=== PATIENT | female | born 1990 | race Caucasian/White ===

== ENCOUNTER 2021-05-01 14:20 | Emergency (ER) | payer SELFPAY ==
[~2021-05-01] VITALS: Ht 162.6 cm; Wt 68.0 kg
[2021-05-01] MEDS ORDERED: ONDANSETRON PF 4 MG/2 ML VIAL. IVP ONE ×2 (14:30→18:45)
[2021-05-01] MEDS ORDERED: IV NORMAL SALINE 1000ML BAG 1,000 ML IV ONE (14:30)
--- NOTE | 2021-05-01 14:53 | PHYS DOC ---
Past Medical History Past Surgical History: No Surgical History (EVIE KAPADIA APRN) Smoking Status: Never Smoker Alcohol Use: None Social History Narrative: "WEED. BUT IT'S BEEN A VERY LONG TIME." (EVIE KAPADIA APRN) General Adult EDM: Chief Complaint: NAUSEA/VOMITING/DIARRHEA HPI: HPI: Patient is a 31 year old female who presents with awoke at 3:00 this morning retching. She states that she thinks is her anxiety if she just left her and is under a lot of stress. She states she has not been on any anxiety medication for 5 years. She is asking for Ativan. Patient is on her hands and knees and retching. (EVIE KAPADIA CULINARY INTERN) Review of Systems: Review of Systems: Constitutional: Denies fever or chills. [] Eyes: Denies change in visual acuity. [] HENT: Denies nasal congestion or sore throat. [] Respiratory: Denies cough or shortness of breath. [] Cardiovascular: Denies chest pain or edema. [] GI: Denies abdominal pain, +nausea, +vomiting, denies bloody stools or diarrhea. [] : Denies dysuria. [] Musculoskeletal: Denies back pain or joint pain. [] Integument: Denies rash. [] Neurologic: Denies headache, focal weakness or sensory changes. [] Endocrine: Denies polyuria or polydipsia. [] Lymphatic: Denies swollen glands. [] Psychiatric: Denies depression or +anxiety. [] (EVIE KAPADIA APRN) Heart Score: C/O Chest Pain: No (EVIE KAPADIA APRN) Current Medications: Current Medications Medications (Trade) Dose Ordered Sig/Bret Start Time Stop Time Status Last Admin Dose Admin Lorazepam (Ativan Inj) 1 mg 1X ONCE 05/01/21 14:30 05/01/21 14:39 DC Ondansetron HCl (Zofran) 4 mg 1X ONCE 05/01/21 14:30 05/01/21 14:39 DC Sodium Chloride 1,000 ml @ 1,000 mls/hr 1X ONCE 05/01/21 14:30 05/01/21 15:29 (EVIE KAPADIA CULINARY INTERN) Allergies: Allergies: Allergies Coded Allergies Type Severity Reaction Last Updated Verified Penicillins Allergy Intermediate 05/01/21 Yes metoclopramide Allergy Intermediate 05/01/21 Yes prochlorperazine Allergy Intermediate 05/01/21 Yes (EVIE KAPADIA APRN) Physical Exam: PE: Constitutional: Well developed, well nourished, no acute distress, non-toxic appearance. [] HENT: Normocephalic, atraumatic, bilateral external ears normal, oropharynx digna st, no oral exudates, nose normal. [] Eyes: PERRLA, EOMI, conjunctiva normal, no discharge. [] Neck: Normal range of motion, no tenderness, supple, no stridor. [] Cardiovascular:Heart rate regular rhythm, no murmur [] Lungs & Thorax: Bilateral breath sounds clear to auscultation [] Abdomen: Bowel sounds normal, soft, epigastric tenderness, no masses, no pulsatile masses. [] Skin: Warm, dry, no erythema, no rash. [] Back: No tenderness, no CVA tenderness. [] Extremities: No tenderness, no cyanosis, no clubbing, ROM intact, no edema. [] Neurologic: Alert and oriented X 3, normal motor function, normal sensory function, no focal deficits noted. [] Psychologic: Affect normal, judgement normal, mood normal. [] (EVIE KAPADIA APRN) Current Patient Data: Vital Signs: Vital Signs Date Time Temp Pulse Resp B/P (MAP) Pulse Ox O2 Delivery O2 Flow Rate FiO2 05/01/21 14:31 99 12 135/60 (85) 99 Room Air (EVIE KAPADIA APRN) EKG: EK and read by Dr. Amor as sinus tachycardia rhythm at a rate of 101 but no STEMI (EVIE KAPADIA APRN) Radiology/Procedures: Radiology/Procedures: [] Impression: [facility] [address] [place], [place] [id number] IMAGING REPORT Signed PATIENT: CYNTHIA CORREA ACCOUNT: [id number] : 1990 LOCATION: ER AGE: 31 SEX: F EXAM STATUS: REG ER ORD. PHYSICIAN: EVIE KAPADIA APRN REASON: VOMITING PROCEDURE: ACUTE ABDOMEN SERIES XR ABDOMEN COMP ACUTE History: Vomiting Comparison: CT abdomen and pelvis 01/24/2014 Technique: Frontal chest with upright and supine radiographs of the abdomen and pelvis. Findings: Chest: Clear lungs. Normal cardiomediastinal silhouette. Bowel gas pattern: Normal. Free air: None. Abnormal calcifications: None. Bones: Normal. Other: None. Impression: 1. No acute cardiopulmonary findings. 2. No acute abdominal findings. Electronically signed by: Samuel Xiao MD (05/01/2021 5:37 PM) [facility] DICTATED and SIGNED BY: SAMUEL XIAO MD DATE: 05/01/21 [id number] 0 (EVIE KAPADIA APRN) Course & Med Decision Making: Course & Med Decision Making Pertinent Labs and Imaging studies reviewed. (See chart for details) COVID-19 CRITERIA: The patient was evaluated during the global COVID-19 pandemic, and that diagnosis was suspected/considered upon their initial presentation. Their evaluation, treatment and testing was consistent with current guidelines for patients who present with complaints or symptoms that may be related to COVID-19. See HPI. Alert and oriented x4. Ambulatory with a steady gait. Speaks in full clear sentences. Abdomen is soft but tender to epigastric area. Patient is retching very loudly and is very anxious and is on her hands and knees. Patient received 1 mg of Ativan and some Zofran. She is also getting normal saline bolus. Upon walking into the room to reassess the patient she is laying on the bed comfortably and no longer retching. She has her eyes closed and appears to be sleepy. She did open her eyes and answers my questions. Patient states she is feeling slightly better but not much. She states she is just nauseated. RN told me that the patient asked the RN to clean her up as she had " pooped on herself". The RN stated that she would help her but the patient would need to also help clean herself up. Patient became angry with RN as she did not want to help clean herself up. Per the medic Clive call me to the room and stated that he put the patient in the chair as she had vomited all over the bed. He stated that the patient proceeded to throw herself onto the floor yelling help. I went into the room and patient is laying on the floor not willing to move and stating that this is her anxiety and her muscles are tight. Patient is shaking on the floor yelling help. Patient states she cannot get herself up off the floor. When asked why the patient put herself on the floor she stated " I did not put myself on the floor, I just knew I was going down so I got on the floor". I had Dr. Whitaker going to see the patient and he stated to the patient that we were not ignoring her needs but there is some very sick people in the hospital. Patient states that she is upset that that she has not gotten warm blankets and nobody is helping clean her up. Nursing staff have been in her room multiple times. Patient is now given 5 mg of Haldol IV. Patient is refusing Covid test. 1830: Acute abdominal series shows no acute findings. Blood work is unremarkable. Patient has no complaint of epigastric pain. Patient is given Toradol, famotidine, Zofran. 1900: Patient states that she is ready to go home. Her rapid Covid is negative. Patient still refusing to give urine. 2017: After patient had been discharged RN went to clean the room and discovered the patient gave a urine specimen prior to leaving. Upon checking the patient has a positive nitrite UTI. I will have RN attempt to call the patient so a antibiotic can be called in for the patient as nursing did not put in a preferred pharmacy for the patient. [] (EVIE KAPADIA APRN) Course & Med Decision Making I was the Attending physician on the above date of service of this patient. This patient was evaluated, examined, treated, and dispositioned from the emergency department by the mid-level practitioner. Although I was working at the time , no assistance was requested. Electronically signed, Liz Whitaker DO (LIZ WHITAKER DO) Ronnie Disclaimer: Ronnie Disclaimer: This electronic medical record was generated, in whole or in part, using a voice recognition dictation system. (EVIE KAPADIA APRN) COVID-19 Patient Risks: Age 65 or older: No Sign of co-morbidity: No Exp to person + for COVID: No Exp to PUI: No Travel from affected area: No Lower respiratory symptoms: No Fever: No Other: Yes (N,V) (EVIE KAPADIA APRN) PPE Use: Full PPE with N95 mask or PAPR: Yes (EVIE KAPADIA APRN) Departure Departure Impression: Primary Impression: Anxiety Additional Impressions: Nausea & vomiting Qualified Codes: R11.2 - Nausea with vomiting, unspecified Marijuana abuse UTI (urinary tract infection) Qualified Codes: N30.00 - Acute cystitis without hematuria Disposition: HOME / SELF CARE / HOMELESS Condition: STABLE Patient Instructions: Anxiety and Panic Attacks, Nausea and Vomiting Additional Instructions: Follow-up with primary care provider. Drink plenty of fluids to stay hydrated. Return for shortness of breath, fever or unable to keep down any fluids. Scripts Nitrofurantoin Monohyd/M-Cryst (MACROBID 100 MG CAPSULE) 100 Mg Capsule 1 CAP PO BID for 10 Days, #20 CAP 0 Refills Prov: EVIE KAPADIA APRN 05/01/21 EVIE KAPADIA APRN May 01, 2021 14:53 LIZ WHITAKER DO May 02, 2021 14:08
[2021-05-01 15:03] LABS: BASO % 0 % (0-3); EOS # 0.1 x10^3/uL (0.0-0.7); EOS % 0 % (0-3); HEMATOCRIT 39.8 % (36.0-47.0); HEMOGLOBIN 13.3 g/dL (12.0-15.5); LYMPH # 0.7 x10^3/uL (1.0-4.8); LYMPH % 6 % (24-48); MEAN CORPUSCULAR HEMOGLOBIN 28 pg (25-35); MEAN CORPUSCULAR HGB CONC 33 g/dL (31-37); MEAN CORPUSCULAR VOLUME 84 fL (79-100); MONO % 8 % (0-9); NEUT # 10.9 x10^3/uL (1.8-7.7); NEUT % 86 % (31-73); PLATELET COUNT 293 x10^3/uL (140-400); RED BLOOD COUNT 4.75 x10^6/uL (3.50-5.40); RED CELL DISTRIBUTION WIDTH 14.7 % (11.5-14.5); WHITE BLOOD COUNT 12.7 x10^3/uL (4.0-11.0)
[2021-05-01 15:18] LABS: CALCIUM 8.7 mg/dL (8.5-10.1); CREATININE 0.8 mg/dL (0.6-1.0); GFR 84.8; POTASSIUM 3.6 mmol/L (3.5-5.1)
[2021-05-01 15:24] LABS: ALBUMIN 4.2 g/dL (3.4-5.0); ALBUMIN/GLOBULIN RATIO 1.4 (1.0-1.7); TOTAL BILIRUBIN 0.8 mg/dL (0.2-1.0); TOTAL PROTEIN 7.2 g/dL (6.4-8.2)
[2021-05-01] MEDS ORDERED: HALOPERIDOL LACTATE 5 MG/ML VIAL. IVP ONE (16:15)
--- NOTE | 2021-05-01 17:40 | RAD ---
XR ABDOMEN COMP ACUTE History: Vomiting Comparison: CT abdomen and pelvis 01/24/2014 Technique: Frontal chest with upright and supine radiographs of the abdomen and pelvis. Findings: Chest: Clear lungs. Normal cardiomediastinal silhouette. Bowel gas pattern: Normal. Free air: None. Abnormal calcifications: None. Bones: Normal. Other: None. Impression: 1. No acute cardiopulmonary findings. 2. No acute abdominal findings. Electronically signed by: Samuel Johansen MD (05/01/2021 5:37 PM) [facility]
[2021-05-01] MEDS ORDERED: KETOROLAC 30 MG/ML VIAL. IVP ONE (18:45)
[2021-05-01] MEDS ORDERED: FAMOTIDINE 20 MG TABLET. PO ONE (18:45)
[2021-05-01 18:59] VITALS: BP 100/65
[2021-05-01 19:47] LABS: BILIRUBIN,URINE NEGATIVE (NEG); CLARITY,URINE CLEAR; COLOR,URINE YELLOW; NITRITE,URINE POSITIVE (NEG); PROTEIN,URINE NEGATIVE (NEG-TRACE); UROBILINOGEN,URINE 0.2 mg/dL (0.2 mg/dL)
[2021-05-01 19:53] LABS: BACTERIA,URINE MANY /HPF (0-FEW); RBC,URINE 0 /HPF (0-2)
[2021-05-01 19:55] LABS: BARBITURATES NEG (NEG); BENZODIAZEPINES NEG (NEG); CANNABINOIDS POS (NEG); COCAINE NEG (NEG); METHADONE NEG (NEG); OPIATES NEG (NEG); PHENCYCLIDINE NEG (NEG)
[2021-05-01 19:57] LABS: AMPHETAMINE/METHAMPHETAMINE NEG (NEG)
[2021-05-01] MEDS ORDERED: NITR100C62 PO (20:41)
--- NOTE | 2021-05-04 11:00 | NUR ---
IP: Attempted to contact pt concerning covid results. No answer, left a voicemail to return the call.
== END 2021-05-01 19:41 | disposition home or self-care (01) ==
LOC: ER 14:20
DX: N30.00 Acute cystitis without hematuria (principal); Z20.822 Contact with and (suspected) exposure to COVID-19; R11.2 Nausea with vomiting, unspecified; F41.9 Anxiety disorder, unspecified; F12.10 Cannabis abuse, uncomplicated
CPT/HCPCS: 36415; 74022; 80053; 80307; 81001; 82550; 83690; 85025; 87077; 87086; 87186; 87426; 96361; 96374; 96375; 96376; 99285; J1630; J1885; J2060; J2405; J7030; U0003; U0005